=== PATIENT | male | born 1990 | race Caucasian/White ===

== ENCOUNTER 2024-01-27 17:10 | Emergency (ER) | payer MEDICAID ==
[~2024-01-27] VITALS: Ht 182.9 cm; Wt 74.8 kg
[2024-01-27 17:20] VITALS: TEMP 98.5
[2024-01-27] MEDS: IV NS 0.9% 1,000 ML BAG IV ONE (17:30)
[2024-01-27] MEDS ORDERED: ONDANSETRON HCL/PF 4 MG/2 ML VIAL ONE (17:32)
[2024-01-27] MEDS ORDERED: MORPHINE SULFATE INJ 4 MG/ML DISP.SYRIN ONE (17:33)
[2024-01-27] MEDS: ONDANSETRON HCL/PF 4 MG/2 ML VIAL IV ONE (17:36)
[2024-01-27] MEDS: MORPHINE SULFATE INJ 2 MG/ML DISP.SYRIN IV ONE (17:37)
[2024-01-27] MEDS ORDERED: IOHEXOL-300 100 ML VIAL IV ONE (17:37)
[2024-01-27] MEDS ORDERED: IV NS 0.9% 250 ML IV ONE (17:37)
[2024-01-27 17:38] LABS: BASOPHILS # (AUTO) 0.1 K/uL (0.0-0.2); BASOPHILS % (AUTO) 1.1 % (0.0-2.0); EOSINOPHILS # (AUTO) 0.1 K/uL (0.0-0.7); EOSINOPHILS % (AUTO) 1.5 % (0.0-6.0); HEMATOCRIT 44 % (39-51); HEMOGLOBIN 14.9 g/dL (13.5-17.5); LYMPHOCYTES # (AUTO) 3.1 K/uL (0.8-4.8); LYMPHOCYTES % (AUTO) 34.4 % (20.0-44.0); MEAN CORPUSCULAR HEMOGLOBIN 29 PG (26.0-33.0); MEAN CORPUSCULAR HGB CONC 34 g/dl (31.0-36.0); MEAN CORPUSCULAR VOLUME 86 fL (80-96); MONOCYTES # (AUTO) 0.4 K/uL (0.1-1.30); MONOCYTES % (AUTO) 4.9 % (2.0-12.0); NEUTROPHILS # (AUTO) 5.3 K/uL (1.8-8.9); NEUTROPHILS % (AUTO) 58.1 % (43.0-81.0); PLATELET COUNT (AUTO) 399 K/uL (150-450); RED BLOOD CELL COUNT(AUTO) 5.16 MIL/uL (4.5-6.0); RED CELL DISTRIBUTION WIDTH 14.1 % (11.5-15.0)
[2024-01-27 17:51] LABS: ALBUMIN 4.5 g/dL (3.4-5.0); BILIRUBIN,DIRECT 0.1 mg/dL (0.0-0.2); BILIRUBIN,TOTAL 0.5 mg/dL (0.2-1.0); CALCIUM, SERUM 9.3 mg/dL (8.5-10.1); CREATININE 1.1 mg/dL (0.6-1.3); POTASSIUM 3.6 mmol/L (3.5-5.1); TOTAL PROTEIN, SERUM 8.3 g/dL (6.4-8.2)
[2024-01-27] MEDS ORDERED: KETOROLAC TROMETHAMINE 15 MG/ML VIAL ONE (18:10)
[2024-01-27] MEDS: KETOROLAC TROMETHAMINE 15 MG/ML VIAL IV ONE (18:12)
[2024-01-27 18:40] LABS: APPEARANCE,URINE CLOUDY (CLEAR); BILIRUBIN,URINE 1+ (NEGATIVE); BLOOD, URINE 3+ Ery/uL (NEGATIVE); COLOR,URINE YELLOW (YELLOW); KETONES,URINE TRACE mg/dL (NEGATIVE); LEUKOCYTE ESTERASE ,URINE NEGATIVE (NEGATIVE); NITRITE, URINE NEGATIVE (NEGATIVE); PH,URINE 5.5 (5.0-8.0); PROTEIN,URINE 2+ mg/dl (NEGATIVE); UGLUCOSE NEGATIVE (NEGATIVE)
[2024-01-27 18:43] LABS: RBC,URINE 51-80 /HPF (0-2); WBC,URINE 0-2 /HPF (0-3)
[2024-01-27 18:44] LABS: ADD URINE CULTURE NO; BACTERIA,URINE RARE /HPF (None Seen); MUCUS,URINE Moderate /LPF (None Seen)
[2024-01-27] MEDS ORDERED: KETO10TA2 PO (19:11)
[2024-01-27 19:29] VITALS: BP 130/85; O2SAT 100
== END 2024-01-27 19:29 | disposition home or self-care (01) ==
LOC: ER 17:10
DX: R10.32 Left lower quadrant pain (principal); R11.2 Nausea with vomiting, unspecified; R31.9 Hematuria, unspecified; Z85.51 Personal history of malignant neoplasm of bladder
CPT/HCPCS: 99285; 74177; 96374; 96375; 71045; 96361; 85025; 80048; 83605; 83690; 80076; 81001; 36415; J2270; J2405; J7030; J7050; Q9967; J1885

== ENCOUNTER 2024-04-06 14:21 | Emergency (ER) | payer MEDICAID ==
[~2024-04-06] VITALS: Ht 180.3 cm; Wt 72.6 kg
[~2024-04-06 14:21] MED LIST: KETO10TA2 PO
[2024-04-06 14:44] VITALS: BP 125/68; TEMP 98.4
[2024-04-06 16:19] VITALS: O2SAT 100
== END 2024-04-06 16:20 | disposition home or self-care (01) ==
LOC: ER 14:21
DX: S60.221A Contusion of right hand, initial encounter (principal); Z85.51 Personal history of malignant neoplasm of bladder; W23.0XXA Caught, crushed, jammed, or pinched between moving objects, initial encounter; Y93.89 Activity, other specified; Y92.89 Other specified places as the place of occurrence of the external cause; Y99.8 Other external cause status
CPT/HCPCS: 73130-TC